=== PATIENT | female | born 1945 | race Caucasian/White ===

== ENCOUNTER → 2017-05-14 | Outpatient (CLI) | payer MEDICARE, OTHER ==
[~2017-05-14] MED LIST: CALC-703 PO; CHOL200038 PO; DOCU-416 PO; DONE10TA38 PO; LORA-630 PO; MELA3TAB31 PO; MEMA10TA18 PO; MIRT-27 PO; MIRT7.5T2 PO; MOM PO; MULT-885 PO; QUET25TA PO; VENL25TA3 PO
== END ==
LOC: ZZSPRING 02:01
PROVIDERS: ATTEND Family Medicine
DX: D64.9 Anemia, unspecified (principal); F03.90 Unspecified dementia, unspecified severity, without behavioral disturbance, psychotic disturbance, mood disturbance, and anxiety; E55.9 Vitamin D deficiency, unspecified
CPT/HCPCS: 36415; 82040; 82247; 82310; 82374; 82435; 82565; 82947; 84075; 84132; 84155; 84295; 84450; 84460; 84520; 85027

== ENCOUNTER → 2017-10-02 | Outpatient (CLI) | payer MEDICARE, OTHER ==
--- NOTE | 2017-10-03 11:55 | RADIOLOGY IMAGING REPORT ---
FACILITY: [facility] - [place] PATIENT NAME: MARIALUISA MARTIN : [id number] MR: [id number] V: [id number] EXAM DATE: [id number] ORDERING PHYSICIAN: ANTHONY SANDOVAL TECHNOLOGIST: Winnie Hernandez PROCEDURE:BILATERAL DIGITAL SCREENING MAMMOGRAM WITH CAD ASSISTED INTERPRETATION & 3D TOMOSYNTHESIS COMPARISON:Prior mammograms 09/12/16, 08/24/15, 02/05/14, 12/25/12, 12/29/10. INDICATIONS:screening FINDINGS: Moderately dense heterogeneous fibroglandular tissue is seen throughout the breasts. The parenchymal pattern has remained stable allowing for difference in mammographic technique & patient positioning. There is no evidence of malignant appearing mass, malignant appearing calcifications or other secondary sign of malignancy in either breast. DIAGNOSTIC CATEGORY 1--NEGATIVE. RECOMMENDATIONS: ROUTINE MAMMOGRAM AND CLINICAL EVALUATION. IMPRESSION: BIRADS 1: Negative. No significant abnormality is seen. Dictated by: Erika Monroy M.D. on 10/02/2017 at 16:14 Transcribed by: DEANGELO on 10/03/2017 at 8:13 Approved by: Erika Monroy M.D. on 10/03/2017 at 11:54 [facility]
== END ==
LOC: MAMO 01:32
PROVIDERS: ATTEND Family Medicine
DX: Z12.31 Encounter for screening mammogram for malignant neoplasm of breast (principal)
CPT/HCPCS: 77063; 77067

== ENCOUNTER → 2017-10-29 | Outpatient (CLI) | payer MEDICARE, OTHER | LOC: ZZSPRING 02:13 | PROVIDERS: ATTEND Family Medicine | DX: D64.9 Anemia, unspecified (principal); F03.90 Unspecified dementia, unspecified severity, without behavioral disturbance, psychotic disturbance, mood disturbance, and anxiety; E55.9 Vitamin D deficiency, unspecified | CPT/HCPCS: 36415; 82040; 82247; 82306; 82310; 82374; 82435; 82565; 82947; 84075; 84132; 84155; 84295; 84450; 84460; 84520; 85027 ==

== ENCOUNTER → 2018-06-20 | Outpatient (CLI) | payer MEDICARE, OTHER ==
[~2018-06-20] MED LIST changes: -MIRT-27 PO; +MIRT15TA11 PO
--- NOTE | 2018-06-20 14:27 | EKG ---
FACILITY: [facility] - [place] PATIENT NAME: MARIALUISA MARTIN : [id number] MR: [id number] V: [id number] EXAM DATE: ORDERING PHYSICIAN: ANTHONY SANDOVAL TECHNOLOGIST: Test Reason : abnormal body movements Blood Pressure : / mmHG Vent. Rate : 089 BPM Atrial Rate : 089 BPM P-R Int : 132 ms QRS Dur : 068 ms QT Int : 356 ms P-R-T Axes : 048 083 073 degrees QTc Int : 433 ms Normal sinus rhythm Nonspecific ST and T wave abnormality Abnormal ECG When compared with ECG of 10-OCT-2015 11:14, Nonspecific T wave abnormality has replaced inverted T waves in Lateral leads QT has shortened Confirmed by Servando Hayes ([id number]) on 06/20/2018 7:28:24 PM Referred By: Confirmed By:Servando Chase
== END ==
LOC: LAB 13:43
PROVIDERS: ATTEND Family Medicine
DX: R41.82 Altered mental status, unspecified (principal); R25.9 Unspecified abnormal involuntary movements; R94.31 Abnormal electrocardiogram [ECG] [EKG]
CPT/HCPCS: 36415; 82040; 82247; 82310; 82374; 82435; 82565; 82947; 84075; 84132; 84155; 84295; 84443; 84450; 84460; 84520; 85027; 93005

== ENCOUNTER → 2018-06-24 | Outpatient (CLI) | payer MEDICARE, OTHER ==
--- NOTE | 2018-06-24 16:46 | RADIOLOGY IMAGING REPORT ---
FACILITY: [facility] - [place] PATIENT NAME: Vanessa Madrid : 1945 MR: [id number] V: [id number] EXAM DATE: ORDERING PHYSICIAN: ANTHONY SANDOVAL TECHNOLOGIST: Location: [facility] Patient: Vanessa Madrid : 1945 Visit/Account:[id number] Date of Sevice: 06/24/2018 Exam type: CHEST PA LAT History: Cough Comparison: August 16, 2016. Findings: Increased coarse linear stranding the medial left lower lobe is consistent with infiltrate and/or ate lectasis. There is no evidence of pleural effusion or overt pulmonary edema. The cardiac silhouette is normal in size. IMPRESSION: 1. Increased coarse linear stranding in the medial left lower lobe consistent with infiltrate and/or atelectasis Report Dictated By: Erika Monroy MD at 06/24/2018 4:41 PM Report E-Signed By: Erika Monroy MD at 06/24/2018 4:42 PM WSN:[id number]
== END ==
LOC: RAD 15:22
PROVIDERS: ATTEND Family Medicine
DX: R05 Cough (principal)
CPT/HCPCS: 71046

== ENCOUNTER → 2018-07-08 | Outpatient (CLI) | payer MEDICARE, OTHER | LOC: ZZSPRING 02:00 | PROVIDERS: ATTEND Family Medicine | DX: D64.9 Anemia, unspecified (principal); F03.90 Unspecified dementia, unspecified severity, without behavioral disturbance, psychotic disturbance, mood disturbance, and anxiety | CPT/HCPCS: 36415; 82040; 82247; 82310; 82374; 82435; 82565; 82947; 84075; 84132; 84155; 84295; 84450; 84460; 84520; 85027 ==